=== PATIENT | female | born 1970 | race Caucasian/White ===

== ENCOUNTER 2020-04-18 19:42 | Inpatient (IN) | payer OTHER ==
[~2020-04-18] VITALS: Ht 162.6 cm; Wt 79.3 kg
[~2020-04-18 19:42] MED LIST: CLIN300 PO; CRUTCH3 USE; DIPH50; ERYT333ERA PO; HYDACE5 PO; IBUP200; IBUP800 PO; MECL25 PO; NAPR500 PO; NAPR550 PO; OXYACE5T PO; PROM25 PO; RXERYTOPTH OP; SULTRIDS PO; TRAZ100; TRAZ50
[2020-04-18 20:13] LABS: BASOPHILS ABSOLUTE AUTO 0.11 K/mm3 (0.00-0.23); BASOPHILS PERCENT AUTO 1 % (0-2); EOSINOPHILS ABSOLUTE AUTO 0.07 K/mm3 (0.00-0.68); EOSINOPHILS PERCENT AUTO 1 % (0-6); Hematocrit 35.2 % (33.0-51.0); Hemoglobin 11.3 g/dL (11.5-16.0); IMMATURE GRAN ABSOLUTE AUTO 0.06 K/mm3 (0.00-0.10); IMMATURE GRAN PERCENT AUTO 1 % (0-1); LYMPHOCYTES ABSOLUTE AUTO 2.36 K/mm3 (0.84-5.20); LYMPHOCYTES PERCENT AUTO 22 % (21-46); MONOCYTES ABSOLUTE AUTO 0.49 K/mm3 (0.16-1.47); MONOCYTES PERCENT AUTO 5 % (4-13); Mean Corpuscular HGB 28.8 pg (26.0-34.0); Mean Corpuscular HGB Conc 32.1 g/dL (31.5-36.5); Mean Corpuscular Volume 90 fL (80-100); Mean Platelet Volume 9.7 fL (9.1-12.4); NEUTROPHILS ABSOLUTE AUTO 7.46 K/mm3 (1.96-9.15); NEUTROPHILS PERCENT AUTO 71 % (41-73); Platelet Count 338 K/mm3 (150-400); RDW Coefficient Variation 15.1 % (11.7-14.2); RDW Standard Deviation 49.2 fL (35.1-46.3); Red Blood Cell Count 3.92 M/mm3 (3.80-5.20); White Blood Cell Count 10.55 K/mm3 (4.00-11.30)
[2020-04-18 20:33] LABS: Alanine Aminotransfer (ALT/SGP 84 U/L (12-78); Albumin, Blood 3.6 g/dL (3.4-5.0); Alk Phos 78 U/L (50-136); Anion Gap 7 mmol/L (6-16); Aspartate Aminotrans (AST/SGOT 61 U/L (12-37); Bilirubin, Total 0.5 mg/dL (0.1-1.0); Blood Urea Nitrogen 16 mg/dL (8-24); Bun/Creatinine Ratio 18.1 (12.0-20.0); CO2, Blood 23 mmol/L (21-32); Calcium, Blood 8.2 mg/dL (8.5-10.1); Chloride, Blood 112 mmol/L (98-108); Creatinine, Blood 0.88 mg/dL (0.40-1.00); Globulin, Blood 3.5 g/dL (2.2-4.0); Glomerular Filtration Rate >60 (60-); Glucose, Blood 124 mg/dL (70-99); Potassium, Blood 4.2 mmol/L (3.5-5.5); Sodium, Blood 142 mmol/L (136-145); Total Protein, Blood 7.1 g/dL (6.4-8.2)
[2020-04-19] MEDS ORDERED: Loratadine10 MG PO (00:43)
[2020-04-19 04:12] LABS: Anion Gap 7 mmol/L (6-16); Blood Urea Nitrogen 18 mg/dL (8-24); Bun/Creatinine Ratio 22.8 (12.0-20.0); CO2, Blood 28 mmol/L (21-32); Calcium, Blood 8.6 mg/dL (8.5-10.1); Chloride, Blood 106 mmol/L (98-108); Creatinine, Blood 0.79 mg/dL (0.40-1.00); Glomerular Filtration Rate >60 (60-); Glucose, Blood 107 mg/dL (70-99); Potassium, Blood 3.2 mmol/L (3.5-5.5); Sodium, Blood 141 mmol/L (136-145)
--- NOTE | 2020-04-19 06:51 | NUR ---
SHIFT SUMMARY PT TRANSFERRED TO UNIT FROM ED. PT HYPERTENSIVE PRIOR TO TRANFER. PT HAD A 16 BEAT RUN OF VTACH AT APROX 0019. PT REPORTS MILD CP UPON EXERTION. BP STABLE UPON ARRIVAL TO PCU. NO MORE RUNS OF VTACH OCCURED T/O SHIFT. PT ALERT AND ORIENTED. ABLE TO AMBULATE TO COMMODE NEEDED. PT REPORTS PAIN IN THE BLE. HEATING PAD AND PAIN MEDICATIONS GIVEN PER EMAR. PT REPORTS PAIN RELIEF. PT SLEPT T/O REST OF SHIFT. VS REMAIN STABLE. OXYGEN SATURATION REMAINED ABOVE 92% ON RA. WILL CONTINUE TO MONITOR UNTIL REPORT GIVEN TO KEITH CORTES.
--- NOTE | 2020-04-19 10:36 | NUR ---
ASSUMING CARE OF PT, RECEIVED REPORT FROM SEBASTIAN SHELDON. PT ALERT AND ORIENTED, NO SIGNS OF ANXIETY AT THIS TIME. PT WITH FAMILY IN ROOM, CONVERSING AND LAUGHING. ECHO COMPLETE, REPEAT EKG COMPLETE. PT AMBULATES INDEPENDENTLY TO AND FROM RESTROOM WITHOUT COMPLICATIONS. PT STATES IMPROVEMENT TO SOB, DENIES CP.
[2020-04-19 11:08] LABS: Thyroid Stimulating Hormone 4.66 uIU/mL (0.360-4.800); Troponin I 0.019 ng/mL (0.000-0.040)
--- NOTE | 2020-04-19 17:37 | NUR ---
SHIFT SUMMARY: PT CONTINUES ALERT AND ORIENTED T/OUT SHIFT, REMAINS INDEPENDENT IN ROOM AND AMBULATES TO RESTROOM W/OUT DIFFICULTY, STATES IMPROVEMENT OF SOB T/OUT DAY. PT HAS STATUS CHANGE TO MEDICAL DEPT. AT APPROX 1620, RECEIVED CALL FROM AICHA, [employer], TO NOTIFY OF AN 8 BEAT RUN OF VTACH. PT FOUND TO BE SITTING IN BEDSIDE CHAIR IN NAD. PT STATES SHE HAD BEEN UP TO RESTROOM THEN AMBULATED TO BSC, DENIES CP, DENIES FEELING IRREGULAR HR, STATES SHE JUST WAS FEELING SOB LIKE USUAL WHEN AMBULATING. PT INSTRUCTED TO NOTIFY OF ANY CHANGE IN SYMPTOMS, V/U. WILL CONTINUE TO MONITOR AND TREAT ACCORDINGLY UNTIL CHANGE OF SHIFT.
[2020-04-19 18:15] LABS: Bun/Creatinine Ratio 18.8 (12.0-20.0); Calcium, Blood 8.9 mg/dL (8.5-10.1); Creatinine, Blood 1.17 mg/dL (0.40-1.00); Potassium, Blood 4.4 mmol/L (3.5-5.5)
--- NOTE | 2020-04-19 20:00 | NUR ---
PT HANDOFF REPORT GIVEN TO MEDICAL FLOOR RNAIDAN. PT TRANSPORTED BY WHEELCHAIR TO ROOM 324 WITH ALL BELONGINGS. PT REPORTS NO CP OR PRESSURE PRIOR TO TRANSFER.
[2020-04-20 05:16] LABS: Anion Gap 12 mmol/L (6-16); Blood Urea Nitrogen 24 mg/dL (8-24); Bun/Creatinine Ratio 26.2 (12.0-20.0); CO2, Blood 23 mmol/L (21-32); Calcium, Blood 9.2 mg/dL (8.5-10.1); Chloride, Blood 106 mmol/L (98-108); Creatinine, Blood 0.92 mg/dL (0.40-1.00); Glomerular Filtration Rate >60 (60-); Glucose, Blood 117 mg/dL (70-99); Potassium, Blood 3.8 mmol/L (3.5-5.5); Sodium, Blood 141 mmol/L (136-145)
--- NOTE | 2020-04-20 06:01 | NUR ---
PT RESTED COMFORTABLY THROUGH NIGHT AO TELE NSR ROOM AIR VOIDS INDEPENDENTLY VSS - PRN HYDRALAZINE GIVEN X1 CALL LIGHT WITHIN REACH, BED IN LOWEST POSITION. WILL CONTINUE TO MONITOR.
--- NOTE | 2020-04-20 14:09 | NUR ---
PT ARRIVED FROM [facility]. PT IS A&O X4. TR BAND IN PLACE WITH NO BLEEDING. PT WAS DROWSY AND OXYGEN SATURATION WAS 89%, PLACED HER ON 2 LITERS OF OXYGEN VIA NASAL CANNULA AND O2 SATS REMAINED ABOVE 95%. PT ATE AND DRANK AND HAD A VISITOR. CALL LIGHT IN REACH AND BED IN LOW POSITION.
--- NOTE | 2020-04-20 15:06 | NUR ---
STARTED RELEASING AIR FROM PATIENTS TR BAND 1ML TO START.
--- NOTE | 2020-04-20 18:31 | NUR ---
TR BAND REMOVED AT 163O. PT ATE DINNER AND AMBULATED INDEPENDENTLY IN ROOM. NO COMPLAINTS OF PAIN AND NO ACUTE CHANGES. CALL LIGHT IS IN REACH AND BED IS IN LOW POSITION.
--- NOTE | 2020-04-20 18:40 | NUR ---
TR BAND REMOVED AT 1630, OCCLUSIVE DRESSING APPLIED AND NO BLEEDING PRESENT.
[2020-04-21 04:33] LABS: Anion Gap 9 mmol/L (6-16); Blood Urea Nitrogen 24 mg/dL (8-24); Bun/Creatinine Ratio 27.1 (12.0-20.0); CO2, Blood 24 mmol/L (21-32); Calcium, Blood 8.9 mg/dL (8.5-10.1); Chloride, Blood 106 mmol/L (98-108); Creatinine, Blood 0.89 mg/dL (0.40-1.00); Glomerular Filtration Rate >60 (60-); Glucose, Blood 108 mg/dL (70-99); Magnesium, Blood 2.7 mg/dL (1.6-2.4); Potassium, Blood 4.1 mmol/L (3.5-5.5); Sodium, Blood 139 mmol/L (136-145)
--- NOTE | 2020-04-21 05:19 | NUR ---
SHIFT SUMMARY PT WAS ALERT AND AWAKE AT START OF SHIFT AND STATED NO PAIN. TR BAND SITE WAS REDDENED AND NO SWELLING OR PAIN WITH NO CHANGE T/O SHIFT. HR WAS IN THE 50'S T/O THE NIGHT WHILE SLEEPING AND SLEPT MOST OF THE NIGHT. TELE SHOWED BUNDLE BRANCH BLOCK WITH PVC'S, BP STABLE AROUND 130'S SYSTOLIC, ACCESS SITE ON UPPER RIGHT ARM HAD NO CHANGE, SATURATION AMOUNT ON DRESSING REMAINED THE SAME. PT WAS ABLE TO AMBULATE TO TOILET ON OWN. WILL CONTINUE TO MONITOR UNTIL END OF SHIFT.
--- NOTE | 2020-04-21 07:43 | NUR ---
pt laying in bed watching a movie, a/ox3, pleasant and cooperative with care, follows commands well, denies pain, sob or dizziness, lungs are clear t/o, resp even and unlabored, no cough noted, hrr, sr with bbb and pvc's, no edema noted, ppp+1, cap refill <3sec, vs stable, afebrile, iv site is clear and patent, btx4, abd flat soft nontender, voids without diff, skin has right wrist tr band site, clear, arm board in place, maew, up ad js, miguel, call light in reach, call light in reach.
[2020-04-21] MEDS ORDERED: LISI20 PO (10:04)
[2020-04-21] MEDS ORDERED: METO25ER PO (10:05)
[2020-04-21] MEDS ORDERED: SPIR25 PO (10:07)
[2020-04-21] MEDS ORDERED: NICO21TP TOP (10:07)
[2020-04-21] MEDS ORDERED: TORSE20 PO (10:08)
--- NOTE | 2020-04-21 10:43 | NUR ---
PT HAS BEEN DISCHARGED TO HOME. WENT OVER ALL DISCHARGE INSTRUCTIONS WITH PT INCLUDING NEW MEDICATION, PT VERBALIZED UNDERSTANDING. PRINTED TR BAND INSTRUCTIONS WERE PROVIDED. SHE WILL KEEP THE ARM BOARD IN PLACE FOR ANOTHER DAY. NEW MEDICATIONS WERE CALLED INTO [facility]. IV REMOVED INTACT. PT HAS ALL HER BELONGINGS AND LEFT AMBULATING WITH NURSE.
== END 2020-04-21 10:37 | disposition home or self-care (01) | DRG 286 ==
LOC: ER 19:42 → MEDS 22:32 → ER 22:32 → PCU 23:33 → MEDS 23:33 → PCU 23:38 → MEDS 04-19 20:17 → PCU 04-20 13:52
PROVIDERS: Family Medicine; Internal Medicine Cardiovascular Disease; Physician Assistant; ADMIT Internal Medicine
PROC: 4A023N7 Measurement of Cardiac Sampling and Pressure, Left Heart, Percutaneous Approach (ICD-10-PCS; principal; 2020-04-20)
PROC: B2111ZZ Fluoroscopy of Multiple Coronary Arteries using Low Osmolar Contrast (ICD-10-PCS; 2020-04-20)
DX: I11.0 Hypertensive heart disease with heart failure (principal); I50.21 Acute systolic (congestive) heart failure; I47.2 Ventricular tachycardia; F17.210 Nicotine dependence, cigarettes, uncomplicated; E87.6 Hypokalemia; I34.0 Nonrheumatic mitral (valve) insufficiency; F10.10 Alcohol abuse, uncomplicated; I49.3 Ventricular premature depolarization; I42.0 Dilated cardiomyopathy
CPT/HCPCS: 36415; 80048; 80053; 82728; 83735; 83880; 84443; 84484; 85025; 85347; 93005; 93010; 93306; 93458; 93460; 96374; 96375; 99152; 99153; 99285-25; A9270; C1769; C1894; J0360; J1644; J1650; J1940; J2250; J3010; J7030; J7050; Q9967

== ENCOUNTER 2020-10-28 17:58 | Emergency (ER) | payer OTHER ==
[~2020-10-28] VITALS: Ht 162.6 cm; Wt 77.1 kg
[~2020-10-28 17:58] MED LIST changes: +LISI20 PO; +Loratadine10 MG PO; +METO25ER PO; +NICO21TP TOP; +SPIR25 PO; +TORSE20 PO
[2020-10-28 18:26] LABS: BASOPHILS ABSOLUTE AUTO 0.09 K/mm3 (0.00-0.23); BASOPHILS PERCENT AUTO 1 % (0-2); EOSINOPHILS ABSOLUTE AUTO 0.18 K/mm3 (0.00-0.68); EOSINOPHILS PERCENT AUTO 2 % (0-6); Hematocrit 37.8 % (33.0-51.0); Hemoglobin 13.1 g/dL (11.5-16.0); IMMATURE GRAN ABSOLUTE AUTO 0.02 K/mm3 (0.00-0.10); IMMATURE GRAN PERCENT AUTO 0 % (0-1); LYMPHOCYTES ABSOLUTE AUTO 3.26 K/mm3 (0.84-5.20); LYMPHOCYTES PERCENT AUTO 31 % (21-46); MONOCYTES PERCENT AUTO 7 % (4-13); Mean Corpuscular HGB 30.7 pg (26.0-34.0); Mean Corpuscular HGB Conc 34.7 g/dL (31.5-36.5); Mean Corpuscular Volume 89 fL (80-100); Mean Platelet Volume 9.2 fL (9.1-12.4); NEUTROPHILS ABSOLUTE AUTO 6.34 K/mm3 (1.96-9.15); NEUTROPHILS PERCENT AUTO 60 % (41-73); Platelet Count 338 K/mm3 (150-400); RDW Coefficient Variation 13.1 % (11.7-14.2); RDW Standard Deviation 42.8 fL (35.1-46.3); Red Blood Cell Count 4.27 M/mm3 (3.80-5.20); White Blood Cell Count 10.59 K/mm3 (4.00-11.30)
[2020-10-28 18:46] LABS: Alanine Aminotransfer (ALT/SGP 16 U/L (12-78); Albumin, Blood 3.7 g/dL (3.4-5.0); Albumin/Globulin Ratio 0.9 (0.8-1.8); Alk Phos 61 U/L (50-136); Anion Gap 5 mmol/L (6-16); Aspartate Aminotrans (AST/SGOT 14 U/L (12-37); Bilirubin, Total 0.3 mg/dL (0.1-1.0); Blood Urea Nitrogen 12 mg/dL (8-24); Bun/Creatinine Ratio 15.5 (12.0-20.0); CO2, Blood 26 mmol/L (21-32); Calcium, Blood 9.2 mg/dL (8.5-10.1); Chloride, Blood 106 mmol/L (98-108); Creatinine, Blood 0.78 mg/dL (0.40-1.00); Globulin, Blood 3.9 g/dL (2.2-4.0); Glomerular Filtration Rate >60 (60-); Glucose, Blood 97 mg/dL (70-99); Potassium, Blood 3.6 mmol/L (3.5-5.5); Sodium, Blood 137 mmol/L (136-145); Total Protein, Blood 7.6 g/dL (6.4-8.2); Troponin I <0.015 ng/mL (0.000-0.040)
[2020-10-28] MEDS ORDERED: METO100ER PO (20:28)
[2020-10-28 21:35] LABS: U Amphetamine Screen Not Detected; U Barbituate Screen Not Detected; U Benzodiazapine Screen Not Detected; U Buprenorphine Screen Not Detected; U Cannabinoids Screen DETECTED; U Cocaine Screen Not Detected; U Methadone Screen Not Detected; U Methamphetamine Screen Not Detected; U Opiates Screen Not Detected; U Oxycodone Screen Not Detected; U Phencyclidine Screen Not Detected; U Propoxyphene Screen Not Detected
== END 2020-10-28 22:47 | disposition home or self-care (01) ==
LOC: ER 17:58
PROVIDERS: Emergency Medicine
DX: R07.9 Chest pain, unspecified (principal); R94.31 Abnormal electrocardiogram [ECG] [EKG]; F17.200 Nicotine dependence, unspecified, uncomplicated; Z88.8 Allergy status to other drugs, medicaments and biological substances; Z88.0 Allergy status to penicillin; Z79.899 Other long term (current) drug therapy
CPT/HCPCS: 36415; 71046; 80053; 84484; 85025; 93005; 93010; 99285-25; A9270

== ENCOUNTER 2024-02-02 20:43 | Emergency (ER) | payer OTHER ==
[~2024-02-02] VITALS: Ht 162.6 cm; Wt 86.2 kg
[~2024-02-02 20:43] MED LIST changes: +METO100ER PO
[2024-02-02 20:48] VITALS: BP 177/112
== END 2024-02-02 22:34 | disposition left against medical advice (07) ==
LOC: ER 20:43
DX: M79.672 Pain in left foot (principal); Z53.21 Procedure and treatment not carried out due to patient leaving prior to being seen by health care provider
CPT/HCPCS: 73630; 99281-25